=== PATIENT | female | born 1990 | race Caucasian/White ===

== ENCOUNTER 2017-03-27 19:18 | Emergency (ER) | payer MEDICAID ==
[~2017-03-27] VITALS: Ht 172.7 cm; Wt 97.3 kg
[~2017-03-27 19:18] MED LIST: JOLI0.35 PO
[2017-03-27 19:20] VITALS: BP 122/85; PULSE 81; RESP 15; TEMP 98.8; O2SAT 98
--- NOTE | 2017-03-27 19:44 | PD ---
HPI Chief Complaint: Fall Time Seen by Provider: 19:39 Travel History International Travel<30 days: No Contact w/Intl Traveler<30days: No Traveled to known affect area: No History of Present Illness HPI 26-year-old female presents to the emergency room for evaluation of left wrist and right forearm pain after trip and fall just prior to arrival. Patient landed forward on an outstretched left wrist and flat on the right forearm. Denies any other injuries. Pain is worse with any range of motion. Right arm pain is localized to the proximal radius and ulna. She has not taken anything for pain because she is breast-feeding. [facility] Past Medical History Diminished Hearing: No Tetanus Vaccination: < 5 Years Influenza Vaccination: No ?: Not LMP: 1 WEEK Social History Alcohol Use: Yes (occasionally) Tobacco Use: No Substance Use: No Allergies-Medications (Allergen,Severity, Reaction): Coded Allergies: No Known Allergies (Unverified , 03/27/17) Reported Meds & Prescriptions Reported Meds & Active Scripts Active Review of Systems Except as stated in HPI: all other systems reviewed are Neg Physical Exam Narrative GENERAL: Well-nourished, well-developed female in no acute distress. Afebrile. Ambulatory. SKIN: Focused skin assessment warm/dry. No erythema or ecchymosis. HEAD: Normocephalic. EYES: No scleral icterus. No injection or drainage. NECK: Supple, trachea midline. No JVD or lymphadenopathy. CARDIOVASCULAR: Regular rate and rhythm without murmurs, gallops, or rubs. RESPIRATORY: Breath sounds equal bilaterally. No accessory muscle use. EXTREMITY: Right forearm is tender to palpation of the proximal radius. Normal supination and pronation, limited extension and flexion on the right. 2 + radial pulses bilaterally. Radial, ulnar, and median nerves intact bilaterally. Left wrist is tender to palpation on the radial aspect. No snuffbox tenderness. Mild edema of the right elbow. Data Data Last Documented VS Vital Signs Date Time Temp Pulse Resp B/P Pulse Ox O2 Delivery O2 Flow Rate FiO2 03/27/17 19:20 98.8 81 15 122/85 98 Orders Forearm (2vws) (03/27/17 ) Wrist, Complete ([id number]) (03/27/17 ) Splint Or Brace Apply/Monitor (03/27/17 20:35) MDM Medical Decision Making Medical Screen Exam Complete: Yes Emergency Medical Condition: Yes Medical Record Reviewed: Yes Differential Diagnosis Sprain versus fracture versus contusion Narrative Course 26-year-old female presents to the emergency room for evaluation of left wrist and right elbow pain after job and fall earlier today. Physical exam reveals edema of the right elbow. There is tenderness to palpation of the elbow. Slightly limited flexion and extension. Full supination and pronation. Right upper extremities are grossly intact with 2+ radial pulse. Radial, ulnar, and median nerves intact. Left wrist is tender to palpation. Left upper 70s neurovascular intact. No snuffbox tenderness. X-ray of the left wrist is negative. X-ray of the right elbow shows a nondisplaced radial neck fracture. Patient placed in sling and told to follow up with an orthopedic surgeon within 1 week. She was discharged with prescription for Lortab. She understands and agrees to plan. Diagnosis Primary Impression: Radial neck fracture Qualified Code: S52.131A - Closed displaced fracture of neck of right radius, initial encounter Referrals: Marcos Das MD Primary Care Physician Patient Instructions: Elbow Fracture in Adults (ED), General Instructions Additional Instructions: Rest and drink plenty of fluids. Elevate and keep sling on until follow-up. Take Lortab as directed, as needed for pain. This medication will be excreted through breastmilk so use caution when breast-feeding. Take ibuprofen with food as directed, as needed for pain. Apply ice to the affected area for 20 minutes at a time, as needed for pain and swelling. Follow-up with an orthopedist within 1 week. Return to the emergency room for worsening symptoms. Scripts Hydrocodone-Acetaminophen (Lortab)5-325 Mg Tab1 Tab PO Q8HR PRN (PAIN) #10 TAB Ref 0 Prov:Addison Schwab MD 03/27/17 Disposition: 01 DISCHARGE HOME Condition: Stable Jolanta Jaime March 27, 2017 19:44
--- NOTE | 2017-03-27 20:24 | RADHPO ---
EXAM DATE/TIME: 03/27/2017 19:56 [facility] COMPARISON: No previous studies available for comparison. INDICATIONS : Patient fell this evening over a baby gate. MEDICAL HISTORY : None. SURGICAL HISTORY : None. ENCOUNTER: Initial ACUITY: 1 day PAIN SCORE: 7/10 LOCATION: Left wrist. FINDINGS: Three view examination of the left wrist demonstrates no soft tissue swelling, dislocation, or fractu re. The carpal bones are in normal alignment. The joint spaces are maintained. Bony mineralization is normal. CONCLUSION: Unremarkable examination of the left wrist. Brian Perry MD on March 27, 2017 at 20:21 Board Certified Radiologist. This report was verified electronically.
--- NOTE | 2017-03-27 20:28 | RADHPO ---
EXAM DATE/TIME: 03/27/2017 20:03 [facility] COMPARISON: No previous studies available for comparison. INDICATIONS : Patient fell this evening over a baby gate. MEDICAL HISTORY : None. SURGICAL HISTORY : None. ENCOUNTER: Initial ACUITY: 1 day PAIN SCORE: 9/10 LOCATION: Right Forearm FINDINGS: There is a small elbow joint effusion. A minimally displaced fracture is seen involving the proximal radial neck laterally. The remainder of the radius and ulna are intact. CONCLUSION: Minimally displaced radial neck fracture Brian Perry MD on March 27, 2017 at 20:25 Board Certified Radiologist. This report was verified electronically.
[2017-03-27] MEDS ORDERED: HYDR-3533 PO (20:43)
== END 2017-03-27 20:49 | disposition home or self-care (01) ==
LOC: PHEFT 19:18
DX: S52.131A Displaced fracture of neck of right radius, initial encounter for closed fracture (principal); W01.0XXA Fall on same level from slipping, tripping and stumbling without subsequent striking against object, initial encounter
CPT/HCPCS: 73090; 73110; 99283

== ENCOUNTER 2017-05-08 14:41 | Emergency (ER) | payer MEDICAID ==
[~2017-05-08] VITALS: Ht 172.7 cm; Wt 95.7 kg
[~2017-05-08 14:41] MED LIST changes: +HYDR-3533 PO
[2017-05-08 14:59] VITALS: BP 142/82; PULSE 96; RESP 20; TEMP 98.3; O2SAT 95
--- NOTE | 2017-05-08 15:55 | PD ---
HPI Chief Complaint: ENT Complaint Time Seen by Provider: 15:31 Travel History International Travel<30 days: No Contact w/Intl Traveler<30days: No Traveled to known affect area: No History of Present Illness HPI 27-year-old female complains of sore throat coughing congestion. Patient states the symptoms started yesterday. Patient denies any fever. Patient denies any chest pain or shortness of breath. Patient denies any nausea vomiting diarrhea. Patient states the cough is mild dry cough. Patient denies any chance of being . PFSH Past Medical History Medical History: Denies Significant Hx Diminished Hearing: No ?: Not Social History Alcohol Use: Yes (occasionally) Tobacco Use: No Substance Use: No Allergies-Medications (Allergen,Severity, Reaction): Coded Allergies: No Known Allergies (Unverified , 04/02/17) Reported Meds & Prescriptions Reported Meds & Active Scripts Active Jolivette-35 (Norethindrone) 0.35 Mg Tab 1 Tab PO DAILY Review of Systems General / Constitutional: No: Fever Eyes: No: Visual changes HENT: Positive: Sore Throat, No: Headaches Cardiovascular: No: Chest Pain or Discomfort Respiratory: Positive: Cough, No: Shortness of Breath Gastrointestinal: No: Abdominal Pain Genitourinary: No: Dysuria Musculoskeletal: No: Pain Skin: No Rash Neurologic: No: Weakness Psychiatric: No: Depression Endocrine: No: Polydipsia Hematologic/Lymphatic: No: Easy Bruising Physical Exam Narrative GENERAL: Well-nourished, well-developed patient. SKIN: Focused skin assessment warm/dry. HEAD: Normocephalic. EYES: No scleral icterus. No injection or drainage. TM: Clear. Throat: Mild erythematous. NECK: Supple, trachea midline. No JVD or lymphadenopathy. No meningismus CARDIOVASCULAR: Regular rate and rhythm without murmurs, gallops, or rubs. RESPIRATORY: Breath sounds equal bilaterally. No accessory muscle use. GASTROINTESTINAL: Abdomen soft, non-tender, nondistended. MUSCULOSKELETAL: No cyanosis, or edema. BACK: Nontender without obvious deformity. No CVA tenderness. Data Data Last Documented VS Vital Signs Date Time Temp Pulse Resp B/P Pulse Ox O2 Delivery O2 Flow Rate FiO2 05/08/17 14:59 98.3 96 20 142/82 95 MDM Medical Decision Making Medical Screen Exam Complete: Yes Emergency Medical Condition: Yes Differential Diagnosis Differential diagnosis including pharyngitis, bronchitis, pneumonia. Narrative Course 27-year-old female with sore throat and dry cough. Diagnosis Primary Impression: Bronchitis Additional Impression: Pharyngitis Qualified Code: J02.9 - Pharyngitis, unspecified etiology Patient Instructions: General Instructions Additional Instructions: Z-Carlos as directed. Tylenol for fever. Follow-up with personal physician. Return if persistent problem or worse. Med/Other Pt SpecificInfo: Prescription(s) given Scripts Azithromycin (Zithromax Z-Carlos)250 Mg [id number] Mg PO DIRECTED #1 DSPK 500 MG (2 tabs) day 1, then 1 tab days 2-5. Prov:Hood Butler MD 05/08/17 Disposition: 01 DISCHARGE HOME Condition: Stable Hood Butler MD May 08, 2017 15:55
[2017-05-08] MEDS ORDERED: ZITHTAB PO (16:43)
== END 2017-05-08 16:58 | disposition home or self-care (01) ==
LOC: PHED 14:41
DX: J40 Bronchitis, not specified as acute or chronic (principal); J02.9 Acute pharyngitis, unspecified
CPT/HCPCS: 99283